=== PATIENT | female | born 1950 | race Caucasian/White ===

== ENCOUNTER 2018-05-24 18:59 | Observation (INO) | payer OTHER ==
[2018-05-24 19:55] VITALS: BMI 25.0
--- NOTE | 2018-05-24 20:33 | PDOC ---
Attending Attestation - HPI HPI: 05/24/18 22:02 The patient is a 67 year old female, with a significant past medical history of Parkinsons, epilepsy (last seizure 2-5 years ago), and schizophrenia, who presents to the emergency department with, an episode of pressure-like chest pain. She denies recent palpitations, diaphoresis, or shortness of breath. She denies recent fevers, chills, headache or dizziness. She denies recent nausea, vomit, diarrhea or constipation. She denies recent dysuria, frequency, urgency or hematuria. Allergies: NDKA Social history: [facility]-term rehab Primary Care Physician: Dr. Salvador - Physicial Exam PE: 05/24/18 23:26 Agree with resident exam. <Mi Menezes - Last Filed: 05/24/18 23:26> - Resident Resident Name: ToluDanilo - ED Attending Attestation I have performed the following: I have examined & evaluated the patient, The case was reviewed & discussed with the resident, I agree w/resident's findings & plan - Medical Decision Making 05/24/18 23:44 67-year-old female with chest pressure Troponin is within normal limits EKG showed a normal sinus rhythm with no significant ST segment changes CTA of the chest has been ordered to evaluate for pulmonary embolism due to active pressure and slightly low oxygenation of 92% on room air Plans for admission to medical service pending results <Krysten Beebe - Last Filed: 05/24/18 23:45> Attestations - Attestations 05/24/18 22:03 Documentation prepared by Mi Menezes, acting as medical stenographer for Krysten Beebe DO. <Mi Menezes - Last Filed: 05/24/18 23:26>
--- NOTE | 2018-05-24 21:11 | PDOC ---
History of Present Illness - General Chief Complaint: Chest Pain Stated Complaint: CHEST PAIN Time Seen by Provider: 05/24/18 20:32 History Source: Patient Exam Limitations: No Limitations - History of Present Illness Initial Comments: 05/24/18 21:25 67 yo F with a hx of seizures, HTN, schizophrenia, and parkinsons presents to the emergency department with chest pain since 3 pm today. Per the patient, she states it started while at rest. It was described as a sharp, 6/10, with radiation to the left arm, constant, without aggravating and relieving factors. Denies the following: fevers, chills, visual changes, headaches, abdominal pain , dysuria, hematuria, diarrhea, hematochezia, and leg pain/swelling. Denies recent travels, recent immobilization, recent surgery, and hx of PE/DVT. Patient denies her mother having a myocardial infarction and her father's health history is unknown. Allergies: NKDA Social: Denies tobacco, alcohol, and substance abuse. Past History - Past Medical History Allergies/Adverse Reactions: Allergies Allergy/AdvReac Type Severity Reaction Status Date / Time No Known Allergies Allergy Verified 05/24/18 21:34 Home Medications: Ambulatory Orders Acetaminophen 325 mg PO QID 05/24/18 Amantadine HCl [Amantadine] 100 mg PO BID 05/24/18 Aspirin 81 mg PO DAILY 05/24/18 Atorvastatin Ca [Lipitor] 20 mg PO HS 05/24/18 Carbidopa/Levodopa *Cr* 25/100 [Sinemet *Cr* 25/100 -] 1 tab PO TID 05/24/18 Docusate Sodium [Colace] 200 mg PO DAILY 05/24/18 Lamotrigine [Lamictal] 25 mg PO BID 05/24/18 Levetiracetam [Levetiracetam ER] 500 mg PO BID 05/24/18 Polyvinyl Alcohol [Artificial Tears] 1 drop OU BID 05/24/18 Quetiapine Fumarate [Seroquel -] 200 mg PO HS 05/24/18 Ramelteon [Rozerem] 8 mg PO HS 05/24/18 Sertraline HCl 25 mg PO HS 05/24/18 Zolpidem Tartrate 10 mg PO HS 05/24/18 - Suicide/Smoking/Psychosocial Hx Smoking History: Never smoked Have you smoked in the past 12 months: No Information on smoking cessation initiated: No Hx Alcohol Use: No Drug/Substance Use Hx: No Review of Systems - Review of Systems Able to Perform ROS?: Yes Is the patient limited [place] proficient: No Constitutional: Yes: Weakness. No: Chills, Diaphoresis, Fever HEENTM: No: Eye Pain, Recent change in vision, Ear Pain, Nose Pain, Throat Pain Respiratory: Yes: Shortness of Breath. No: Cough, SOB with Exertion, Hemoptysis Cardiac (ROS): Yes: Chest Pain. No: Lightheadedness, Palpitations, Syncope, Chest Tightness ABD/GI: Yes: Nausea. No: Constipated, Diarrhea, Poor Fluid Intake, Vomiting, Tarry Stools : No: Burning, Dysuria, Hematuria, Urgency Musculoskeletal: No: Back Pain, Joint Pain, Neck Pain Integumentary: No: Pallor, Rash Neurological: No: Headache, Numbness Psychiatric: Yes: Depression. No: Change in Appetite Endocrine: No: Unexplained Weight Loss Hematologic/Lymphatic: No: Anemia *Physical Exam - Vital Signs Last Vital Signs Temp Pulse Resp BP Pulse Ox 98.9 F 87 20 116/74 95 05/24/18 19:00 05/24/18 19:00 05/24/18 19:00 05/24/18 19:00 05/24/18 19:00 - Physical Exam General Appearance: Yes: Nourished, Appropriately Dressed. No: Apparent Distress HEENT: positive: EOMI, CONNIE, Normal Voice, Pharynx Normal, Hearing Grossly Normal. negative: Pale Conjunctivae, Scleral Icterus (R), Scleral Icterus (L), Muffled/Hoarse voice, Pharyngeal Erythema, Tonsillar Exudate, Tonsillar Erythema , Nasal Congestion, Excessive drooling Neck: positive: Trachea midline, Supple. negative: Tender, Lymphadenopathy (R) , Lymphadenopathy (L), Tender lateral, Tender midline Respiratory/Chest: positive: Lungs Clear, Normal Breath Sounds. negative: Chest Tender, Respiratory Distress, Accessory Muscle Use Cardiovascular: positive: Regular Rhythm, Regular Rate, S1, S2. negative: Systolic Murmur Gastrointestinal/Abdominal: positive: Normal Bowel Sounds, Flat, Soft. negative : Tender Musculoskeletal: positive: Normal Inspection. negative: CVA Tenderness, Vertebral Tenderness Extremity: positive: Normal Capillary Refill, Normal Inspection, Normal Range of Motion. negative: Tender Integumentary: positive: Normal Color, Dry, Warm Neurologic: positive: Fully Oriented, Alert, Normal Mood/Affect, Motor Strength 5/5 Moderate Sedation - Procedure Monitoring Vital Signs: Procedure Monitoring Vital Signs Temperature 98.9 F 05/24/18 19:00 Pulse Rate 87 05/24/18 19:00 Respiratory Rate 20 05/24/18 19:00 Blood Pressure 116/74 05/24/18 19:00 O2 Sat by Pulse Oximetry (%) 95 05/24/18 19:00 Heart Score/ECG Review - History History: Moderately suspicious - Electrocardiogram EKG: Normal - Age Age: >/= 65 - Risk Factors Risk Factors Heart Score: Yes Hx Hypertension, Yes Hx Obesity Based on the list above the patient has:: 1-2 risk factors - Troponin Troponin: </= normal limit - Score Heart Score - Total: 4 - ECG Intrepretation Comment:: 05/24/18 22:48 ventricular rate is 75 bpm, UT is 174 ms, QRS is 84 ms, QTc is 446 ms. Normal sinus rhythm. No ST elevations or depressions. ED Treatment Course - LABORATORY CBC & Chemistry Diagram: 05/25/18 05:20 05/25/18 05:20 Medical Decision Making - Medical Decision Making 67 yo F with a hx of seizures, HTN, schizophrenia, and parkinsons presents to the emergency department with chest pain since 3 pm today. Initial vitals; Initial Vital Signs Temp Pulse Resp BP Pulse Ox 98.9 F 87 20 116/74 95 05/24/18 19:00 05/24/18 19:00 05/24/18 19:00 05/24/18 19:00 05/24/18 19:00 Work up: ddx: ACS vs pericarditis vs pna vs pleuritis vs URI vs costochondritis vs pericardial effusion 05/24/18 22:47 Patient to be admitted to [facility] for further cardiac work up. At the time of sign out to Dr. Telles, patient had pending labs and EKG. 05/24/18 22:48 Patient signed out to Dr. Telles *DC/Admit/Observation/Transfer Diagnosis at time of Disposition: Chest pain Qualifiers: Chest pain type: unspecified Qualified Code(s): R07.9 - Chest pain, unspecified - Discharge Dispostion Condition at time of disposition: Guarded - Referrals - Patient Instructions - Post Discharge Activity
[2018-05-24] MEDS ORDERED: SODIUM CHLORIDE 500 ML IV STA (22:47)
[2018-05-24 23:02] LABS: BASO % 0.5 % (0-2.0); HEMATOCRIT 37.1 % (32.4-45.2); HEMOGLOBIN 12.5 GM/dL (10.7-15.3); LYMPH % 39.8 % (8-40); MCH 31.4 pg (25.7-33.7); MCHC 33.7 g/dl (32.0-36.0); MEAN CELL VOLUME 93.2 fl (80-96); MEAN PLT VOLUME 8.8 fl (7.5-11.1); MONO % 9.1 % (3.8-10.2); NEUT % 48.6 % (42.8-82.8); PLATELET COUNT 224 K/MM3 (134-434); RBC 3.98 M/mm3 (3.60-5.2); RDW 13.4 % (11.6-15.6); WHITE BLOOD COUNT 9.8 K/mm3 (4.0-10.0)
[2018-05-24] MEDS ORDERED: ZOLPIDEM TARTRATE 5 MG TABLET PO ONE (23:30)
[2018-05-24 23:34] LABS: ALBUMIN 3.1 g/dl (3.4-5.0); ALK PHOS 143 U/L (45-117); ANION GAP 8 MMOL/L (8-16); BILIRUBIN,TOTAL 0.2 mg/dL (0.2-1); BLOOD UREA NITROGEN 7 mg/dL (7-18); CALCIUM 9.2 mg/dL (8.5-10.1); CHLORIDE 107 mmol/L (98-107); CO2 28 mmol/L (21-32); CREATININE 0.7 mg/dL (0.55-1.3); GLUCOSE,RANDOM 79 mg/dL (74-106); SGOT/AST 13 U/L (15-37); SGPT/ALT 7 U/L (13-61); SODIUM 143 mmol/L (136-145); TOT PROT 6.4 g/dl (6.4-8.2)
--- NOTE | 2018-05-24 23:35 | PDOC ---
*Physical Exam - Vital Signs Last Vital Signs Temp Pulse Resp BP Pulse Ox 98.9 F 87 20 116/74 95 05/24/18 19:00 05/24/18 19:00 05/24/18 19:00 05/24/18 19:00 05/24/18 19:00 ED Treatment Course - LABORATORY CBC & Chemistry Diagram: 05/24/18 22:41 05/24/18 22:41 - ADDITIONAL ORDERS Additional order review: 05/24/18 22:41 RBC 3.98 MCV 93.2 MCHC 33.7 RDW 13.4 MPV 8.8 Neutrophils % 48.6 Lymphocytes % 39.8 Monocytes % 9.1 Eosinophils % 2.0 Basophils % 0.5 - RADIOLOGY Radiology Studies Ordered: Category Date Time Status CHEST CTA [CT] Stat CT Scan 05/24/18 23:32 Ordered Medical Decision Making - Medical Decision Making 05/24/18 22:34 The patient was signed out to me by Dr. Motley. The patient is a 67F who presents with CP concerning for ACS vs PE. Pt remains hypoxic in ED. Will order CTA to r/o PE. Pt resting comfortably. 05/25/18 00:07 Pt states she takes 10mg of ambien. 5 more ordered. 05/25/18 00:38 Pt refused peripheral IV insertion for CTA study. I have informed her of the risks of not getting a CTA study and she agrees to not have it. Pt is normoxic, not tachycardic, and not tachypneic. Pt states her CP symptoms have resolved. Microblogged for admission. 05/25/18 00:[address] Shaffer for admission. *DC/Admit/Observation/Transfer Diagnosis at time of Disposition: Chest pain Qualifiers: Chest pain type: unspecified Qualified Code(s): R07.9 - Chest pain, unspecified - Discharge Dispostion Condition at time of disposition: Guarded Decision to Admit order: Yes - Referrals Referrals: Emiliano Salvador MD [Primary Care Provider] - - Patient Instructions - Post Discharge Activity
[2018-05-24 23:51] LABS: URINE APPEARANCE CLOUDY; URINE BILIRUBIN NEGATIVE (<2.0 mg/dL); URINE COLOR YELLOW; URINE GLUCOSE (UA) NEGATIVE (NEGATIVE); URINE KETONE TRACE (NEGATIVE); URINE LEUK ESTERASE 3+ (NEGATIVE); URINE NITRITE NEGATIVE (NEGATIVE); URINE PROTEIN NEGATIVE (NEGATIVE); URINE UROBILINOGEN NEGATIVE mg/dL (0.2-1.0)
[2018-05-25] LABS: EPI CELLS FEW /HPF (FEW); URINE HYALINE CAST 5 /lpf; YEAST RARE
[2018-05-25] MEDS ORDERED: ZOLPIDEM TARTRATE 5 MG TABLET ONE ×2 (00:04→00:47)
[2018-05-25] MEDS ORDERED: ZOLPIDEM TARTRATE 5 MG TABLET PO ONE (00:07)
[2018-05-25] MEDS ORDERED: CEFTRIAXONE 1,000 MG in DEXTROSE 5%-WATER - 50 ML IVPB ONE (00:55)
[2018-05-25] MEDS ORDERED: CEFTRIAXONE 1 GM/50 ML BAG ONE ×2 (01:14→09:15)
--- NOTE | 2018-05-25 01:27 | PN ---
Teaching Attending Note Name of Resident: Yenifer Shaffer ATTENDING PHYSICIAN STATEMENT I saw and evaluated the patient. I reviewed the resident's note and discussed the case with the resident. I agree with the resident's findings and plan as documented. SUBJECTIVE: Patient is a 67 year old woman from [facility] with PMH of seizure disorder, HTN , schizophrenia, and parkinsons who presents to the ER with chest pain since 3 pm today. Per the patient, she states it started while at rest. It was described as a sharp, 6/10, with radiation to the left arm, constant, without aggravating and relieving factors. Has dysuria. Denies the following: fevers, chills, visual changes, headaches, abdominal pain, hematuria, diarrhea, hematochezia, and leg pain/swelling. Denies recent travels, recent immobilization, recent surgery, and hx of PE/DVT. Patient denies her mother having a myocardial infarction and her father's health history is unknown. She was recently at [facility] for ?seizures from where she was sent to [place] to get short stay rehab for gait abnormality. 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 OBJECTIVE: Alert and tremulous Vital Signs Period Temp Pulse Resp BP Sys/[place] Pulse Ox Last 24 Hr 98.9 F 87 20 116/74 95 HEENT: No Jaundice, eye redness or discharge, PERRLA, EOMI. Normocephalic, atraumatic. External ears are normal and hearing is grossly intact. No nasal discharge. Neck: Supple, nontender. No palpable adenopathy or thyromegaly. No JVD Chest: Good effort. Clear to auscultation and percussion. Heart: Regular. No S3, rub or murmur Abdomen: Not distended, soft, nontender and no HSM. No rebound or guarding. Normoactive bowel sounds. Ext: Peripheral pulses intact. No leg edema. Skin: Warm and dry. No petechiae, rash or ecchymosis. Neuro: Alert. Oriented x3. Tremulous. CN 2-12 grossly intact. Sensation grossly intact in all four extremities and DTR are symmetric. Home Medications Medication Instructions Recorded Acetaminophen 325 mg PO QID 05/24/18 Amantadine HCl [Amantadine] 100 mg PO BID 05/24/18 Aspirin 81 mg PO DAILY 05/24/18 Atorvastatin Ca [Lipitor] 20 mg PO HS 05/24/18 Carbidopa/Levodopa *Cr* 25/100 1 tab PO TID 05/24/18 [Sinemet *Cr* 25/100 -] Docusate Sodium [Colace] 200 mg PO DAILY 05/24/18 Lamotrigine [Lamictal] 25 mg PO BID 05/24/18 Levetiracetam [Levetiracetam ER] 500 mg PO BID 05/24/18 Polyvinyl Alcohol [Artificial 1 drop OU BID 05/24/18 Tears] Quetiapine Fumarate [Seroquel -] 200 mg PO HS 05/24/18 Ramelteon [Rozerem] 8 mg PO HS 05/24/18 Sertraline HCl 25 mg PO HS 05/24/18 Zolpidem Tartrate 10 mg PO HS 05/24/18 Abnormal Lab Results 05/24/18 05/24/18 22:41 23:01 AST 13 L ALT 7 L Alkaline Phosphatase 143 H Albumin 3.1 L Urine Ketones Trace H Urine Blood 1+ H Ur Leukocyte Esterase 3+ H ASSESSMENT AND PLAN: 1. Chest pain - No significant ST-T wave changes on EKG and no acute abnormality on CXR. Initial troponin is negative. Chest pain is atypical. Will admit to telemetry to rule out ACS. Has features of UTI - though she is a [place] resident, she is afebrile, not toxic looking and does not have leukocytosis - so okay to treat her UTI with just Rocephin pending urine culture. 2. Hypoalbuminemia - Possibly due to combined effects of malnutrition and inflammation associated with comorbid chronic conditions. Will ensure adequate dietary protein intake and also consult director of reservations. 3. DVT prophylaxis - Lovenox 40 mg SQ q 24 hours. 4. Advance directives - Full code
--- NOTE | 2018-05-25 01:58 | HP ---
CHIEF COMPLAINT: chest pain PCP: none HISTORY OF PRESENT ILLNESS: 67 y/o female with PMH of parkinson's, epilespy, schizophrenia, HLD who presents from [facility] (short term stay for physical therapy), who presents with chest pain that started around 3pm yesterday afternoon- she states that she was laying in bed watching TV when the chest pain suddenly came on- she rates it a 7/10 and describes it as a squeezing like pain that radiated down the left arm. Patient states that she had an episode like this in the past once before, but has never seen a live truck operator nor has she had any cardiac workup. She also states that she has been feeling weak/dizzy for the past few days but denies any nausea/vomiting/fevers ir chills. she was recently hospitalized at [facility] for 5 days due to her seizures then was sent to [facility] for physical therapy. patient also endorses having burning on urination since she got the detention 2 weeks ago ER course was notable for: (1trop negative X1; EKG NSR- no st/t wave changes (2)u/a: 3+ leuk esterase; 346 WBC (3) Recent Travel: denies PAST MEDICAL HISTORY: see above PAST SURGICAL HISTORY: denies Social History: Smoking:former smoker; quit 30 years ago Alcohol:occasional drinker; enjoys red [employer] Drugs:former heroin user used everyday for 20 years- hasn't used in 25 years Family History: mother had cardiomegaly Allergies No Known Allergies Allergy (Verified 05/24/18 21:34) HOME MEDICATIONS: Home Medications Medication Instructions Recorded Acetaminophen 325 mg PO QID 05/24/18 Amantadine HCl [Amantadine] 100 mg PO BID 05/24/18 Aspirin 81 mg PO DAILY 05/24/18 Atorvastatin Ca [Lipitor] 20 mg PO HS 05/24/18 Carbidopa/Levodopa *Cr* 25/100 1 tab PO TID 05/24/18 [Sinemet *Cr* 25/ -] Docusate Sodium [Colace] 200 mg PO DAILY 05/24/18 Lamotrigine [Lamictal] 25 mg PO BID 05/24/18 Levetiracetam [Levetiracetam ER] 500 mg PO BID 05/24/18 Polyvinyl Alcohol [Artificial 1 drop OU BID 05/24/18 Tears] Quetiapine Fumarate [Seroquel -] 200 mg PO HS 05/24/18 Ramelteon [Rozerem] 8 mg PO HS 05/24/18 Sertraline HCl 25 mg PO HS 05/24/18 Zolpidem Tartrate 10 mg PO HS 05/24/18 REVIEW OF SYSTEMS CONSTITUTIONAL: Absent: fever, chills, diaphoresis, generalized weakness, malaise, loss of appetite, weight change HEENT: Absent: rhinorrhea, nasal congestion, throat pain, throat swelling, difficulty swallowing, mouth swelling, ear pain, eye pain, visual changes CARDIOVASCULAR: Present: chest pain Absent: syncope, palpitations, irregular heart rate, lightheadedness, peripheral edema RESPIRATORY: Absent: cough, shortness of breath, dyspnea with exertion, orthopnea, wheezing, stridor, hemoptysis GASTROINTESTINAL: Absent: abdominal pain, abdominal distension, nausea, vomiting, diarrhea, constipation, melena, hematochezia GENITOURINARY: Absent: dysuria, frequency, urgency, hesitancy, hematuria, flank pain, genital pain MUSCULOSKELETAL: Absent: myalgia, arthralgia, joint swelling, back pain, neck pain SKIN: Absent: rash, itching, pallor HEMATOLOGIC/IMMUNOLOGIC: Absent: easy bleeding, easy bruising, lymphadenopathy, frequent infections ENDOCRINE: Absent: unexplained weight gain, unexplained weight loss, heat intolerance, cold intolerance NEUROLOGIC: Absent: headache, focal weakness or paresthesias, dizziness, unsteady gait, seizure, mental status changes, bladder or bowel incontinence PSYCHIATRIC: Absent: anxiety, depression, suicidal or homicidal ideation, hallucinations. PHYSICAL EXAMINATION Vital Signs - 24 hr 05/24/18 19:00 Temperature 98.9 F Pulse Rate 87 Respiratory 20 Rate Blood Pressure 116/74 O2 Sat by Pulse 95 Oximetry (%) GENERAL: Awake, alert, anxious, tremulous EYES:EOMI; PEERLA; no scleral icterus. NECK: no JVD, no lypmhadenopathy LUNGS: CTA B/L; no rales, rhonchi or wheezing HEART: Regular rate and rhythm, normal S1 and S2 without murmur, rub or gallop. ABDOMEN: Soft, nontender, not distended, normoactive bowel sounds, no guarding, no rebound, no masses. No hepatomegaly or splenomegaly. MUSCULOSKELETAL: Normal range of motion at all joints. No bony deformities or tenderness. No CVA tenderness. EXTREMITIES: warm; well-perfused; no clubbing/cyanosis or edema NEUROLOGICAL: Cranial nerves II-XII intact. Normal speech. Normal gait. PSYCHIATRIC: Cooperative. Good eye contact. Appropriate mood and affect. SKIN: Warm, dry, normal turgor, no rashes or lesions noted, normal capillary refill. Laboratory Results - last 24 hr 05/24/18 05/24/18 05/24/18 22:41 22:41 23:01 WBC 9.8 RBC 3.98 Hgb 12.5 Hct 37.1 MCV 93.2 MCH 31.4 MCHC 33.7 RDW 13.4 Plt Count 224 MPV 8.8 Absolute Neuts (auto) 4.7 Neutrophils % 48.6 Lymphocytes % 39.8 Monocytes % 9.1 Eosinophils % 2.0 Basophils % 0.5 Nucleated RBC % 0 Sodium 143 Potassium 4.0 Chloride 107 Carbon Dioxide 28 Anion Gap 8 BUN 7 Creatinine 0.7 Creat Clearance w eGFR > 60 Random Glucose 79 Calcium 9.2 Total Bilirubin 0.2 AST 13 L ALT 7 L Alkaline Phosphatase 143 H Creatine Kinase 30 Troponin I 0.02 Total Protein 6.4 Albumin 3.1 L Urine Color Yellow Urine Appearance Cloudy Urine pH 6.0 Ur Specific [place] 1.014 Urine Protein Negative Urine Glucose (UA) Negative Urine Ketones Trace H Urine Blood 1+ H Urine Nitrite Negative Urine Bilirubin Negative Urine Urobilinogen Negative Ur Leukocyte Esterase 3+ H Urine WBC (Auto) 346 Urine RBC (Auto) 6 Ur Epithelial Cells Few Hyaline Casts 5 Urine Yeast Rare ASSESSMENT/PLAN: 67 y/o female with PMH of parkinson's, epilespy, schizophrenia, HLD who presents with sudden onset chest pain that started at rest yesterday afternoon #rule out ACS -trend troponins q6H -c/w ASA and statin -lipid profile pending -TSH pending -echo ordered -cardiology consulted #UTI -c/w 1gram ceftriaxone -f/u urine cx #Epilespy -c/w home epilepsy medication regimen #Schizophrenia - c/w home medication regimen F/E/N not on fluids monitor electrolytes sodium controlled diet DVT PPX: lovenox Problem List - Problem (1) UTI (urinary tract infection) Code(s): N39.0 - URINARY TRACT INFECTION, SITE NOT SPECIFIED (2) Parkinsons Code(s): G20 - PARKINSON'S DISEASE (3) Epilepsy Code(s): G40.909 - EPILEPSY, UNSP, NOT INTRACTABLE, WITHOUT STATUS EPILEPTICUS (4) Chest pain Code(s): R07.9 - CHEST PAIN, UNSPECIFIED Qualifiers: Chest pain type: unspecified Qualified Code(s): R07.9 - Chest pain, unspecified Visit type - Emergency Visit Emergency Visit: Yes ED Registration Date: 05/25/18 Care time: The patient presented to the Emergency Department on the above date and was hospitalized for further evaluation of their emergent condition. - New Patient This patient is new to me today: Yes Date on this admission: 05/25/18 - Critical Care Critical Care patient: No
[2018-05-25] MEDS ORDERED: ZOLPIDEM TARTRATE 5 MG TABLET PO PRN (04:52)
[2018-05-25 05:57] LABS: BASO % 0.5 % (0-2.0); EOS % 1.5 % (0-4.5); HEMATOCRIT 36.3 % (32.4-45.2); HEMOGLOBIN 12.4 GM/dL (10.7-15.3); LYMPH % 33.5 % (8-40); MCH 31.8 pg (25.7-33.7); MCHC 34.3 g/dl (32.0-36.0); MEAN CELL VOLUME 92.8 fl (80-96); MEAN PLT VOLUME 8.6 fl (7.5-11.1); MONO % 9.4 % (3.8-10.2); NEUT % 55.1 % (42.8-82.8); PLATELET COUNT 218 K/MM3 (134-434); RBC 3.91 M/mm3 (3.60-5.2); RDW 13.3 % (11.6-15.6); WHITE BLOOD COUNT 8.7 K/mm3 (4.0-10.0)
[2018-05-25] MEDS ORDERED: CARBIDOPA/LEVODOPA 25/100 TABLET (FP) ONE (06:08)
[2018-05-25 06:26] LABS: ALK PHOS 141 U/L (45-117); ANION GAP 7 MMOL/L (8-16); BILIRUBIN,TOTAL 0.2 mg/dL (0.2-1); BLOOD UREA NITROGEN 9 mg/dL (7-18); CHLORIDE 107 mmol/L (98-107); CHOLESTEROL 174 mg/dL (50-200); CO2 28 mmol/L (21-32); CREATININE 0.8 mg/dL (0.55-1.3); GLUCOSE,RANDOM 81 mg/dL (74-106); HDL CHOLESTEROL 67 mg/dL (40-60); MAGNESIUM 2.3 mg/dL (1.8-2.4); PHOSPHOROUS 4.1 mg/dL (2.5-4.9); POTASSIUM 4.1 mmol/L (3.5-5.1); SGOT/AST 12 U/L (15-37); SGPT/ALT 12 U/L (13-61); SODIUM 142 mmol/L (136-145); TOT PROT 6.3 g/dl (6.4-8.2); TRIGLYCERIDES 141 mg/dL (0-150)
--- NOTE | 2018-05-25 09:52 | PN ---
Progress Note (short form) - Note Progress Note: has chest pain this AM none so far Vital Signs - 24 hr 05/24/18 05/25/18 05/25/18 19:00 06:55 06:59 Temperature 98.9 F 98.3 F Pulse Rate 87 Pulse Rate [ 92 H Apical] Respiratory 20 20 Rate Blood Pressure 116/74 Blood Pressure 124/65 [Left] O2 Sat by Pulse 95 97 94 L Oximetry (%) 05/25/18 07:42 Temperature 97.7 F Pulse Rate 103 H Pulse Rate [ 102 H Apical] Respiratory 18 Rate Blood Pressure Blood Pressure 115/69 [Left] O2 Sat by Pulse 97 Oximetry (%) Current Medications Generic Name Dose Route Start Last Admin Trade Name Freq PRN Reason Stop Dose Admin Amantadine HCl 100 mg 05/25/18 10:00 Symmetrel - PO BID [facility] Aspirin 81 mg 05/25/18 10:00 Asa - PO DAILY [facility] Atorvastatin Calcium 20 mg 05/25/18 22:00 Lipitor - PO HS [facility] Carbidopa/Levodopa 1 combo 05/25/18 06:00 05/25/18 06:08 Sinemet *Cr* 25/100 - PO 1 combo TID [facility] Administration Enoxaparin Sodium 40 mg 05/25/18 10:00 Lovenox - SQ DAILY [facility] Ceftriaxone Sodium 1 gm/ 50 mls @ 100 mls/hr 05/25/18 10:00 Dextrose IVPB DAILY [facility] Protocol Lamotrigine 25 mg 05/25/18 10:00 Lamictal - PO BID [facility] Levetiracetam 500 mg 05/25/18 10:00 Keppra Xr - PO BID [facility] Quetiapine Fumarate 200 mg 05/25/18 22:00 Seroquel - PO HS [facility] Ramelteon 8 mg 05/25/18 22:00 Rozerem PO HS [facility] Sertraline HCl 25 mg 05/25/18 22:00 Zoloft - PO HS [facility] Zolpidem Tartrate 5 mg 05/25/18 04:52 Ambien - PO HS PRN INSOMNIA Laboratory Results - last 24 hr 05/24/18 05/24/18 05/24/18 22:41 22:41 23:01 WBC 9.8 RBC 3.98 Hgb 12.5 Hct 37.1 MCV 93.2 MCH 31.4 MCHC 33.7 RDW 13.4 Plt Count 224 MPV 8.8 Absolute Neuts (auto) 4.7 Neutrophils % 48.6 Lymphocytes % 39.8 Monocytes % 9.1 Eosinophils % 2.0 Basophils % 0.5 Nucleated RBC % 0 Sodium 143 Potassium 4.0 Chloride 107 Carbon Dioxide 28 Anion Gap 8 BUN 7 Creatinine 0.7 Creat Clearance w eGFR > 60 Random Glucose 79 Calcium 9.2 Phosphorus Magnesium Total Bilirubin 0.2 AST 13 L ALT 7 L Alkaline Phosphatase 143 H Creatine Kinase 30 Troponin I 0.02 Total Protein 6.4 Albumin 3.1 L Triglycerides Cholesterol Total LDL Cholesterol HDL Cholesterol Urine Color Yellow Urine Appearance Cloudy Urine pH 6.0 Ur Specific [place] 1.014 Urine Protein Negative Urine Glucose (UA) Negative Urine Ketones Trace H Urine Blood 1+ H Urine Nitrite Negative Urine Bilirubin Negative Urine Urobilinogen Negative Ur Leukocyte Esterase 3+ H Urine WBC (Auto) 346 Urine RBC (Auto) 6 Ur Epithelial Cells Few Hyaline Casts 5 Urine Yeast Rare 05/25/18 05/25/18 05/25/18 05:20 05:20 05:20 WBC 8.7 RBC 3.91 Hgb 12.4 Hct 36.3 MCV 92.8 MCH 31.8 MCHC 34.3 RDW 13.3 Plt Count 218 MPV 8.6 Absolute Neuts (auto) 4.8 Neutrophils % 55.1 Lymphocytes % 33.5 Monocytes % 9.4 Eosinophils % 1.5 Basophils % 0.5 Nucleated RBC % 0 Sodium 142 Potassium 4.1 Chloride 107 Carbon Dioxide 28 Anion Gap 7 L BUN 9 Creatinine 0.8 Creat Clearance w eGFR > 60 Random Glucose 81 Calcium 9.0 Phosphorus 4.1 Magnesium 2.3 Total Bilirubin 0.2 AST 12 L ALT 12 L Alkaline Phosphatase 141 H Creatine Kinase Troponin I Total Protein 6.3 L Albumin 3.0 L Triglycerides 141 Cholesterol 174 Total LDL Cholesterol 80 HDL Cholesterol 67 H Urine Color Urine Appearance Urine pH Ur Specific [place] Urine Protein Urine Glucose (UA) Urine Ketones Urine Blood Urine Nitrite Urine Bilirubin Urine Urobilinogen Ur Leukocyte Esterase Urine WBC (Auto) Urine RBC (Auto) Ur Epithelial Cells Hyaline Casts Urine Yeast 05/25/18 05:20 WBC RBC Hgb Hct MCV MCH MCHC RDW Plt Count MPV Absolute Neuts (auto) Neutrophils % Lymphocytes % Monocytes % Eosinophils % Basophils % Nucleated RBC % Sodium Potassium Chloride Carbon Dioxide Anion Gap BUN Creatinine Creat Clearance w eGFR Random Glucose Calcium Phosphorus Magnesium Total Bilirubin AST ALT Alkaline Phosphatase Creatine Kinase Troponin I < 0.02 Total Protein Albumin Triglycerides Cholesterol Total LDL Cholesterol HDL Cholesterol Urine Color Urine Appearance Urine pH Ur Specific [place] Urine Protein Urine Glucose (UA) Urine Ketones Urine Blood Urine Nitrite Urine Bilirubin Urine Urobilinogen Ur Leukocyte Esterase Urine WBC (Auto) Urine RBC (Auto) Ur Epithelial Cells Hyaline Casts Urine Yeast S1 S2 RRR Lungs clear Abd- soft, NT no edema PLAN Echo ordered check troponins trend Cardiology eval noted For stress test Problem List - Problems (1) Anxiety Code(s): F41.9 - ANXIETY DISORDER, UNSPECIFIED (2) Aortic regurgitation Code(s): I35.1 - NONRHEUMATIC AORTIC (VALVE) INSUFFICIENCY (3) Chest pain Code(s): R07.9 - CHEST PAIN, UNSPECIFIED Qualifiers: Chest pain type: unspecified Qualified Code(s): R07.9 - Chest pain, unspecified (4) Epilepsy Code(s): G40.909 - EPILEPSY, UNSP, NOT INTRACTABLE, WITHOUT STATUS EPILEPTICUS (5) Parkinsons Code(s): G20 - PARKINSON'S DISEASE (6) Schizophrenia Code(s): F20.9 - SCHIZOPHRENIA, UNSPECIFIED (7) UTI (urinary tract infection) Code(s): N39.0 - URINARY TRACT INFECTION, SITE NOT SPECIFIED
[2018-05-25] MEDS: levETIRAcetam XR 500 MG TAB PO SCH ×2 (09:57→22:39)
[2018-05-25] MEDS: ASPIRIN 81 MG CHEWABLE TABLETS PO SCH (09:57)
[2018-05-25] MEDS: AMANTADINE HCL 100 MG TABLET PO SCH ×2 (09:58→22:42)
[2018-05-25] MEDS: ENOXAPARIN NA (PORCINE) 40 MG/0.4 ML DISP.SYRIN SQ SCH (09:58)
[2018-05-25] MEDS: lamoTRIgine 25 MG TABLET PO SCH ×2 (09:58→22:40)
--- NOTE | 2018-05-25 10:24 | CON.CARD ---
Consult Consult Specialty:: Cardiology - History of Present Illness History of Present Illness: The patient is a 67 year old female, with a significant past medical history of Parkinsons, epilepsy (last seizure 2-5 years ago), and schizophrenia, who presents to the emergency department with, an episode of pressure-like chest pain. She denies recent palpitations, diaphoresis, or shortness of breath. She denies recent fevers, chills, headache or dizziness. She denies recent nausea, vomit, diarrhea or constipation. She denies recent dysuria, frequency, urgency or hematuria. Allergies: NDKA Social history: [facility] Primary Care Physician: Dr. Salvador - History Source History Provided By: Patient, Medical Record - Alcohol/Substance Use Hx Alcohol Use: No - Smoking History Smoking history: Never smoked Have you smoked in the past 12 months: No Home Medications - Allergies Allergies/Adverse Reactions: Allergies Allergy/AdvReac Type Severity Reaction Status Date / Time No Known Allergies Allergy Verified 05/24/18 21:34 - Home Medications Home Medications: Ambulatory Orders Acetaminophen 325 mg PO QID 05/24/18 Amantadine HCl [Amantadine] 100 mg PO BID 05/24/18 Aspirin 81 mg PO DAILY 05/24/18 Atorvastatin Ca [Lipitor] 20 mg PO HS 05/24/18 Carbidopa/Levodopa *Cr* 25/100 [Sinemet *Cr* 25/100 -] 1 tab PO TID 05/24/18 Docusate Sodium [Colace] 200 mg PO DAILY 05/24/18 Lamotrigine [Lamictal] 25 mg PO BID 05/24/18 Levetiracetam [Levetiracetam ER] 500 mg PO BID 05/24/18 Polyvinyl Alcohol [Artificial Tears] 1 drop OU BID 05/24/18 Quetiapine Fumarate [Seroquel -] 200 mg PO HS 05/24/18 Ramelteon [Rozerem] 8 mg PO HS 05/24/18 Sertraline HCl 25 mg PO HS 05/24/18 Zolpidem Tartrate 10 mg PO HS 05/24/18 Review of Systems - Review of Systems Constitutional: reports: No Symptoms Eyes: reports: No Symptoms HENT: reports: No Symptoms Neck: reports: No Symptoms Cardiovascular: reports: No Symptoms, Chest Pain Respiratory: reports: No Symptoms Gastrointestinal: reports: No Symptoms Genitourinary: reports: No Symptoms Breasts: reports: No Symptoms Reported Musculoskeletal: reports: No Symptoms Integumentary: reports: No Symptoms Neurological: reports: No Symptoms Endocrine: reports: No Symptoms Hematology/Lymphatic: reports: No Symptoms Psychiatric: reports: No Symptoms Vital Signs: Vital Signs Temperature 97.7 F 05/25/18 07:42 Pulse Rate 102 H 05/25/18 07:42 Respiratory Rate 18 05/25/18 07:42 Blood Pressure 115/69 05/25/18 07:42 O2 Sat by Pulse Oximetry (%) 97 05/25/18 07:42 Constitutional: Yes: Well Nourished, No Distress, Calm Eyes: Yes: WNL, Conjunctiva Clear, EOM Intact HENT: Yes: WNL, Atraumatic, Normocephalic Neck: Yes: WNL, Supple, Trachea Midline Respiratory: Yes: WNL, Regular, CTA Bilaterally Gastrointestinal: Yes: WNL, Normal Bowel Sounds Renal/: Yes: WNL Cardiovascular: Yes: WNL, Regular Rate and Rhythm Musculoskeletal: Yes: WNL Extremities: Yes: WNL Integumentary: Yes: WNL Neurological: Yes: WNL, Alert, Oriented ...Motor Strength: WNL Psychiatric: Yes: WNL, Alert, Oriented - Other Data Labs, Other Data: CBC, BMP 05/25/18 05:20 05/25/18 05:20 Troponin, BNP 05/24/18 05/25/18 22:41 05:20 Troponin I 0.02 < 0.02 Troponin, BNP 05/24/18 05/25/18 22:41 05:20 Troponin I 0.02 < 0.02 Imaging - Results Chest X-ray: Image Reviewed (no i/e) EKG: Image Reviewed (sr wnl) Problem List - Problems (1) Chest pain Code(s): R07.9 - CHEST PAIN, UNSPECIFIED Qualifiers: Chest pain type: unspecified Qualified Code(s): R07.9 - Chest pain, unspecified (2) Epilepsy Code(s): G40.909 - EPILEPSY, UNSP, NOT INTRACTABLE, WITHOUT STATUS EPILEPTICUS (3) Parkinsons Code(s): G20 - PARKINSON'S DISEASE (4) UTI (urinary tract infection) Code(s): N39.0 - URINARY TRACT INFECTION, SITE NOT SPECIFIED Assessment/Plan 67 year old female, with a significant past medical history of Parkinsons, epilepsy (last seizure 2-5 years ago), and schizophrenia, who presents to the emergency department with, an episode of pressure-like chest pain. ekg nl tnis neg Plan telemetry echo cont med rx stress test when stable
[2018-05-25] MEDS: CEFTRIAXONE 1 GM in DEXTROSE 5%-WATER - 50 ML IVPB SCH (10:33)
--- NOTE | 2018-05-25 11:38 | EKG ---
Test Reason : Blood Pressure : / mmHG Vent. Rate : 075 BPM Atrial Rate : 075 BPM P-R Int : 174 ms QRS Dur : 084 ms QT Int : 400 ms P-R-T Axes : 054 -08 026 degrees QTc Int : 446 ms POOR DATA QUALITY, INTERPRETATION MAY BE ADVERSELY AFFECTED NORMAL SINUS RHYTHM NORMAL ECG NO PREVIOUS ECGS AVAILABLE Confirmed by PETEY FLORES MD ([id number]) on 05/25/2018 11:37:50 AM Referred By: Confirmed By:PETEY FLORES MD
--- NOTE | 2018-05-25 13:20 | ECHO ---
Name: CAM MUKHERJEE Exam:Adult Echocardiogram Study Date: 05/25/2018 08:59 AM Age: 67 yrs Reason For Study: Rule Out ACS Height: 67 in Weight: 160 lb BSA: 1.8 m2 MMode/2D Measurements & Calculations IVSd: 1.1 cm Ao root diam: 2.0 cm LVIDd: 3.5 cm ACS: 2.0 cm LVIDs: 3.1 cm LVPWd: 1.2 cm EDV(Teich): 49.3 ml ESV(Teich): 37.2 ml Doppler Measurements & Calculations TR max eliseo: 192.4 cm/sec Med Peak E' Eliseo: 5.3 cm/sec TR max P.0 mmHg Lat Peak E' Eliseo: 7.8 cm/sec Procedure A two-dimensional transthoracic echocardiogram with color flow and Doppler was performed. The study w as technically difficult with many images being suboptimal in quality. Left Ventricle The left ventricular size, thickness and function are normal. The left ventricular ejection fraction is normal. E/A reversal consistent with but not diagnostic of poor LV compliance. The left ventricular w all motion is normal. Right Ventricle The right ventricle is normal in size and function. Atria Normal left and right atrial size and function. Mitral Valve There is mild mitral valve thickening. There is no mitral valve stenosis. There is trace to mild mitr al regurgitation. Tricuspid Valve There is mild tricuspid valve thickening. There is no tricuspid stenosis. There is moderate to severe tricuspid regurgitation. Right ventricular systolic pressure is normal. Aortic Valve The aortic valve is not well visualized. No hemodynamically significant valvular aortic stenosis. Mod erate aortic regurgitation. Pulmonic Valve The pulmonic valve is not well visualized. Great Vessels The aortic root is normal size. Pericardium/Pleura There is no pericardial effusion. Interpretation Summary The left ventricular size, thickness and function are normal E/A reversal consistent with but not diagnostic of poor LV compliance There is moderate to severe tricuspid regurgitation. Right ventricular systolic pressure is normal. The study was technically difficult with many images being suboptimal in quality. The left ventricular wall motion is normal. The left ventricular ejection fraction is normal. There is trace to mild mitral regurgitation. Moderate aortic regurgitation. MD Johnson Florian 05/25/2018 01:20 PM
[2018-05-25] MEDS ORDERED: PT OWN MED DRAWER 7, Y5N ONE (21:36)
[2018-05-25] MEDS ORDERED: ATORVASTATIN CA 20 MG TABLET (FP) PO SCH (22:00)
[2018-05-25] MEDS ORDERED: RAMELTEON 8 MG TABLET PO SCH (22:00)
[2018-05-25] MEDS ORDERED: SERTRALINE HCL 25 MG TABLET (FP) PO SCH (22:00)
[2018-05-25] MEDS ORDERED: QUEtiapine FUMARATE 200 MG TABLET PO SCH (22:00)
[2018-05-26] MEDS ORDERED: DEXTROSE 5%-WATER - 50 ML IVPB ONE (08:31)
[2018-05-26] MEDS ORDERED: cefTRIAXone SODIUM 1 GM VIAL ONE (08:31)
--- NOTE | 2018-05-26 09:21 | PN ---
Progress Note, Physician Chief Complaint: Pt A&Ox3; anxious; UE tremors; No chest pain presently.Anxious about wanting to pay her rent and not lose her apartment (though presently is in a skilled nursing). History of Present Illness: The patient is a 67 year old female, with a significant past medical history of Parkinsons, epilepsy (last seizure 2-5 years ago), insomnia, and anxiety/ schizophrenia, who presents to the emergency department with, an episode of pressure-like chest pain that was central, moderate in intensity, occurred at rest, and lasted.about an hour (Pt had another episode of chest discomfort years ago). She does little exercise (Parkinson's). Multipack/day cigarettes from age [age], then quit cold turkey. Occasional drink (sangria); never a heavy drinker. No family hx CAD, though pt admits she does not have contact with many family members. She denies recent palpitations, diaphoresis, or shortness of breath. She denies recent fevers, chills, headache or dizziness. She denies recent nausea, vomit, diarrhea or constipation. She denies recent dysuria, frequency, urgency or hematuria. 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 Primary Care Physician: Dr. Salvador - Current Medication List Current Medications: Active Medications Amantadine HCl (Symmetrel -) 100 mg PO BID [facility] Last Admin: 05/25/18 22:42 Dose: Not Given Aspirin (Asa -) 81 mg PO DAILY [facility] Last Admin: 05/25/18 09:57 Dose: 81 mg Atorvastatin Calcium (Lipitor -) 20 mg PO HS [facility] Last Admin: 05/25/18 22:40 Dose: Not Given Carbidopa/Levodopa (Sinemet *Cr* 25/100 -) 1 combo PO TID [facility] Last Admin: 05/26/18 05:59 Dose: 1 combo Enoxaparin Sodium (Lovenox -) 40 mg SQ DAILY [facility] Last Admin: 05/25/18 09:58 Dose: 40 mg Ceftriaxone Sodium 1 gm/ (Dextrose) 50 mls @ 100 mls/hr IVPB DAILY [facility]; Protocol Last Admin: 05/25/18 10:33 Dose: 100 mls/hr Lamotrigine (Lamictal -) 25 mg PO BID [facility] Last Admin: 05/25/18 22:40 Dose: Not Given Levetiracetam (Keppra Xr -) 500 mg PO BID [facility] Last Admin: 05/25/18 22:39 Dose: Not Given Quetiapine Fumarate (Seroquel -) 200 mg PO [facility] Last Admin: 05/25/18 22:41 Dose: Not Given Ramelteon (Rozerem) 8 mg PO [facility] Last Admin: 05/25/18 22:41 Dose: Not Given Sertraline HCl (Zoloft -) 25 mg PO [facility] Last Admin: 05/25/18 22:42 Dose: Not Given Zolpidem Tartrate (Ambien -) 5 mg PO PRN PRN Reason: INSOMNIA Last Admin: 05/25/18 22:42 Dose: 5 mg - Objective Vital Signs: Vital Signs Temperature 98.2 F 05/26/18 05:56 Pulse Rate 78 05/26/18 05:56 Respiratory Rate 20 05/26/18 05:56 Blood Pressure 121/70 05/26/18 05:56 O2 Sat by Pulse Oximetry (%) 99 05/25/18 17:11 Constitutional: Yes: Anxious Eyes: Yes: WNL HENT: Yes: WNL Neck: Yes: WNL Cardiovascular: Yes: Murmur (2/4 diastolic murmur, RSB-->base), S1, S2 Respiratory: Yes: WNL Gastrointestinal: Yes: Soft ...Rectal Exam: Yes: Deferred Genitourinary: No: Anuria Breast(s): Yes: WNL Musculoskeletal: Yes: Muscle Weakness Extremities: Yes: Other Edema: No Peripheral Pulses WNL: Yes Integumentary: Yes: WNL Neurological: Yes: Alert, Oriented, Tremors, Unsteady Gait, Weakness Psychiatric: Yes: Alert, Oriented, Other Labs: CBC, BMP 05/25/18 05:20 05/25/18 05:20 - ....Imaging Other: Image Reviewed (telemetry: NSR; no arrhythmias) Problem List - Problems (1) Schizophrenia Code(s): F20.9 - SCHIZOPHRENIA, UNSPECIFIED (2) Anxiety Code(s): F41.9 - ANXIETY DISORDER, UNSPECIFIED (3) Aortic regurgitation Assessment/Plan: ECHO: normal LVEF; abnormal diastolic compliance; modedrate AR. Code(s): I35.1 - NONRHEUMATIC AORTIC (VALVE) INSUFFICIENCY (4) Chest pain Assessment/Plan: TNI < 0.0x x 3. EKG: normal sinus rhythm; normal study. Telemetry: no arrhythmias. On statin. F/u TSH. For stress Lexiscan MIBI. Code(s): R07.9 - CHEST PAIN, UNSPECIFIED Qualifiers: Chest pain type: unspecified Qualified Code(s): R07.9 - Chest pain, unspecified (5) Epilepsy Code(s): G40.909 - EPILEPSY, UNSP, NOT INTRACTABLE, WITHOUT STATUS EPILEPTICUS (6) Parkinsons Code(s): G20 - PARKINSON'S DISEASE (7) UTI (urinary tract infection) Code(s): N39.0 - URINARY TRACT INFECTION, SITE NOT SPECIFIED
[2018-05-26] MEDS ORDERED: REGADENOSON 0.4 MG/5 ML PRE-FILLED SYRINGE IVPUSH ONE ×2 (10:15→12:11)
--- NOTE | 2018-05-26 10:25 | PN ---
Progress Note (short form) - Note Progress Note: no chest pain Vital Signs - 24 hr 05/25/18 05/25/18 05/25/18 14:21 15:31 16:30 Temperature 98 F Pulse Rate 77 Pulse Rate [ 86 82 Apical] Respiratory 17 18 20 Rate Blood Pressure 112/65 Blood Pressure 112/62 130/66 [Left] O2 Sat by Pulse 97 99 Oximetry (%) 05/25/18 05/25/18 05/25/18 17:00 17:11 22:00 Temperature 97.9 F 98.1 F Pulse Rate 86 98 H Pulse Rate [ Apical] Respiratory 20 18 20 Rate Blood Pressure 96/63 109/66 Blood Pressure [Left] O2 Sat by Pulse 99 Oximetry (%) 05/26/18 05/26/18 05:56 10:00 Temperature 98.2 F 98 F Pulse Rate 78 103 H Pulse Rate [ Apical] Respiratory 20 20 Rate Blood Pressure 121/70 118/66 Blood Pressure [Left] O2 Sat by Pulse Oximetry (%) Current Medications Generic Name Dose Route Start Last Admin Trade Name Freq PRN Reason Stop Dose Admin Amantadine HCl 100 mg 05/25/18 10:00 05/25/18 22:42 Symmetrel - PO Not Given BID [facility] Aspirin 81 mg 05/25/18 10:00 05/25/18 09:57 Asa - PO 81 mg DAILY [facility] Administration Atorvastatin Calcium 20 mg 05/25/18 22:00 05/25/18 22:40 Lipitor - PO Not Given HS [facility] Carbidopa/Levodopa 1 combo 05/25/18 06:00 05/26/18 05:59 Sinemet *Cr* 25/100 - PO 1 combo TID [facility] Administration Enoxaparin Sodium 40 mg 05/25/18 10:00 05/25/18 09:58 Lovenox - SQ 40 mg DAILY [facility] Administration Ceftriaxone Sodium 1 gm/ 50 mls @ 100 mls/hr 05/25/18 10:00 05/25/18 10:33 Dextrose IVPB 100 mls/hr DAILY [facility] Administration Protocol Lamotrigine 25 mg 05/25/18 10:00 05/25/18 22:40 Lamictal - PO Not Given BID [facility] Levetiracetam 500 mg 05/25/18 10:00 05/25/18 22:39 Keppra Xr - PO Not Given BID [facility] Quetiapine Fumarate 200 mg 05/25/18 22:00 05/25/18 22:41 Seroquel - PO Not Given HS [facility] Ramelteon 8 mg 05/25/18 22:00 05/25/18 22:41 Rozerem PO Not Given HS [facility] Sertraline HCl 25 mg 05/25/18 22:00 05/25/18 22:42 Zoloft - PO Not Given HS [facility] Zolpidem Tartrate 5 mg 05/25/18 04:52 05/25/18 22:42 Ambien - PO 5 mg HS PRN Administration INSOMNIA Laboratory Results - last 24 hr 05/25/18 15:00 Creatine Kinase 32 Troponin I < 0.02 S1 S2 RRR Lungs clear Abd- soft, NT no edema PLAN troponin negative on iv antibiotics for UTI continue with meds Stress test today- if negative may dc to [facility] on po antibiotics Problem List - Problems (1) Anxiety Code(s): F41.9 - ANXIETY DISORDER, UNSPECIFIED (2) Aortic regurgitation Code(s): I35.1 - NONRHEUMATIC AORTIC (VALVE) INSUFFICIENCY (3) Chest pain Code(s): R07.9 - CHEST PAIN, UNSPECIFIED Qualifiers: Chest pain type: unspecified Qualified Code(s): R07.9 - Chest pain, unspecified (4) Epilepsy Code(s): G40.909 - EPILEPSY, UNSP, NOT INTRACTABLE, WITHOUT STATUS EPILEPTICUS (5) Parkinsons Code(s): G20 - PARKINSON'S DISEASE (6) Schizophrenia Code(s): F20.9 - SCHIZOPHRENIA, UNSPECIFIED (7) UTI (urinary tract infection) Code(s): N39.0 - URINARY TRACT INFECTION, SITE NOT SPECIFIED
[2018-05-26] MEDS ORDERED: PT OWN MED DRAWER 7, Y5N ONE ×2 (11:25→16:20)
[2018-05-26] MEDS: ASPIRIN 81 MG CHEWABLE TABLETS PO SCH (14:40)
[2018-05-26] MEDS: levETIRAcetam XR 500 MG TAB PO SCH ×2 (14:42→16:25)
[2018-05-26] MEDS: lamoTRIgine 25 MG TABLET PO SCH (14:43)
[2018-05-26] MEDS: ENOXAPARIN NA (PORCINE) 40 MG/0.4 ML DISP.SYRIN SQ SCH (14:44)
[2018-05-26] MEDS: CEFTRIAXONE 1 GM in DEXTROSE 5%-WATER - 50 ML IVPB SCH (14:45)
[2018-05-26] MEDS: AMANTADINE HCL 100 MG TABLET PO SCH (14:46)
[2018-05-26 15:52] VITALS: BP 134/97; PULSE 143; TEMP 97.9
[2018-05-26] MEDS ORDERED: ONDANSETRON *ODT* 4 MG TABLET SL PRN (16:36)
[2018-05-26] MEDS ORDERED: SODIUM PHOSPHATE/NA BIPHOS 133 ML ENEMA PR ONE (16:36)
== END 2018-05-26 19:28 ==
LOC: JER 18:59 → JERBED 05-25 00:56 → J4W 05-25 15:37
PROVIDERS: ADMIT Internal Medicine; ATTEND Internal Medicine
PROC: 3E03329 Introduction of Other Anti-infective into Peripheral Vein, Percutaneous Approach (ICD-10-PCS; principal; 2018-05-25)
PROC: 3E033GC Introduction of Other Therapeutic Substance into Peripheral Vein, Percutaneous Approach (ICD-10-PCS; 2018-05-25)
PROC: 3E0337Z Introduction of Electrolytic and Water Balance Substance into Peripheral Vein, Percutaneous Approach (ICD-10-PCS; 2018-05-25)
DX: R07.89 Other chest pain (principal); N39.0 Urinary tract infection, site not specified; G40.909 Epilepsy, unspecified, not intractable, without status epilepticus; G20 Parkinson's disease; F20.0 Paranoid schizophrenia; I10 Essential (primary) hypertension; E88.09 Other disorders of plasma-protein metabolism, not elsewhere classified; F41.9 Anxiety disorder, unspecified; I35.1 Nonrheumatic aortic (valve) insufficiency; Z87.891 Personal history of nicotine dependence; Z79.82 Long term (current) use of aspirin
CPT/HCPCS: 36415; 71045-TC-FY; 78452-TC; 80053; 80061; 81003; 81015; 82550; 83721; 83735; 84100; 84484; 85025; 87086; 87186; 93005; 93010; 93017; 93306-TC; 96361; 96365; 96372; 96375; 99284-25; A9502; G0378; J2785

== ENCOUNTER 2023-10-24 09:56 | Inpatient (IN) | payer OTHER ==
[2023-10-24] MEDS: LACTATED RINGERS SOLUTION 1000 ML INFUS.BAG IV ONE (12:05)
[2023-10-24] MEDS: DIVALPROEX NA *ER* EXTEND REL 500 MG TABLET.SA (FP) PO ONE (12:15)
[2023-10-24] MEDS: CARBIDOPA/LEVODOPA 25/100 TABLET (FP) PO ONE (12:15)
[2023-10-24] MEDS: levETIRAcetam 500 MG TABLET (FP) PO ONE (12:15)
[2023-10-24] MEDS: GABAPENTIN 300 MG CAPSULE PO ONE (12:15)
[2023-10-24 12:23] LABS: HEMATOCRIT 34.9 % (32.4-45.2); HEMOGLOBIN 10.9 GM/dL (10.7-15.3); MCH 25.7 pg (25.7-33.7); MCHC 31.2 g/dl (32.0-36.0); MEAN CELL VOLUME 82.3 fl (80-96); MEAN PLT VOLUME 8.9 fl (7.5-11.1); PLATELET COUNT 568 10^3/uL (134-434); RBC 4.24 M/mm3 (3.60-5.2); RDW 20.2 % (11.6-15.6)
[2023-10-24 12:33] LABS: POTASSIUM 4.6 mmol/L (3.5-5.1)
[2023-10-24 12:35] LABS: BLOOD UREA NITROGEN 15.7 mg/dL (7-18); CALCIUM 9.6 mg/dL (8.5-10.1)
[2023-10-24 12:37] LABS: CREATININE 0.8 mg/dL (0.55-1.3)
[2023-10-24 12:39] LABS: BILIRUBIN,TOTAL 0.6 mg/dL (0.2-1); TOT PROT 7.2 g/dl (6.4-8.2)
[2023-10-24] MEDS ORDERED: PIPERACILLIN/TAZOB 4.5 GM 4.5 GM/100 ML BAG IVPB ONE (13:19)
[2023-10-24 13:20] LABS: N-TERMINAL BNP 904.6 pg/ml (5-125)
[2023-10-24] MEDS: PIPERACILLIN/TAZOB 4.5 GM 4.5 GM in DEXTROSE 5%-WATER 100 ML IVPB ONE (13:30)
[2023-10-24] MEDS: SODIUM CHLORIDE 1,000 ML IV ONE (13:30)
[2023-10-24 13:31] LABS: EPI CELLS 19 /uL (0-25.1); HYALINE CASTS 0 /uL (0-3.1); URINE APPEARANCE CLEAR; URINE BACTERIA 209 /uL (0-1359); URINE BILIRUBIN 3+ (NEGATIVE); URINE COLOR DK YELLOW; URINE GLUCOSE (UA) NEGATIVE (NEGATIVE); URINE KETONE 3+ (NEGATIVE); URINE LEUK ESTERASE NEGATIVE (NEGATIVE); URINE NITRITE NEGATIVE (NEGATIVE); URINE PROTEIN 2+ (NEGATIVE)
[2023-10-24 13:41] LABS: ANISOCYTOSIS 1+; MACROCYTOSIS 0; OVALOCYTE 1+
[2023-10-24] MEDS: VANCOMYCIN HCL 1,500 MG in DEXTROSE 5%-WATER - 500 ML IVPB ONE (14:16)
[2023-10-24] MEDS: VANCOMYCIN PREMIX 1.5 GM 1,500 MG/300 ML BAG IVPB ONE (14:28)
[2023-10-24 14:47] LABS: URINE RBC 28 /uL (0-23.9); URINE WBC 27 /uL (0-25.8)
[2023-10-24] MEDS: SODIUM CHLORIDE 1,000 ML IV SCH (20:24)
[2023-10-24] MEDS: INSULIN ASPART SLIDING SCALE (NOVOLOG) 1 VIAL SQ SCH (22:14)
[2023-10-24] MEDS ORDERED: VALPROATE SODIUM 500 MG/5 ML VIAL ONE (23:32)
[2023-10-24] MEDS ORDERED: levETIRAcetam 500 MG/5 ML INJECTION VIAL IVPB ONE (23:32)
[2023-10-24] MEDS: levETIRAcetam 500 MG/5 ML INJECTION VIAL IVPB ONE (23:39)
[2023-10-25] MEDS: VALPROATE SODIUM 500 MG/5 ML VIAL IVPB ONE (00:14)
[2023-10-25] MEDS: PIPERACILLIN/TAZOB 4.5 GM 4.5 GM in DEXTROSE 5%-WATER 100 ML IVPB ONE (01:28)
[2023-10-25] MEDS ORDERED: VANCOMYCIN/WATER 1250 MG 1,250 MG/250 ML BAG IVPB SCH (02:00)
[2023-10-25 02:22] VITALS: BMI 34.2
[2023-10-25] MEDS: VANCOMYCIN/WATER 1250 MG 1,250 MG/250 ML BAG IVPB SCH (02:32)
[2023-10-25] MEDS ORDERED: ALBUTEROL SO4 HFA INHALER IH PRN (04:49)
[2023-10-25] MEDS: DEXTROSE 5%-NORMAL SALINE 1,000 ML IV SCH (05:59)
[2023-10-25] MEDS ORDERED: VALPROATE SODIUM 500 MG/5 ML VIAL IVPB SCH (06:00)
[2023-10-25] MEDS: VALPROATE SODIUM INJECTION 250 MG in SODIUM CHLORIDE 100 ML IVPB SCH (06:00)
[2023-10-25] MEDS ORDERED: PIPERACILLIN/TAZOB 4.5 GM 4.5 GM in DEXTROSE 5%-WATER 100 ML IVPB SCH (09:00)
[2023-10-25 09:44] LABS: INR 1.08 (0.83-1.09); PROTHROMBIN TIME (PATIENT) 12.2 SEC (9.7-13.0)
[2023-10-25 09:45] LABS: HEMATOCRIT 31.2 % (32.4-45.2); HEMOGLOBIN 9.7 GM/dL (10.7-15.3); MCHC 31.1 g/dl (32.0-36.0); MEAN CELL VOLUME 83.8 fl (80-96); MEAN PLT VOLUME 9.1 fl (7.5-11.1); PLATELET COUNT 483 10^3/uL (134-434); RBC 3.72 M/mm3 (3.60-5.2); RDW 19.9 % (11.6-15.6); WHITE BLOOD COUNT 15.8 K/mm3 (4.0-10.0)
[2023-10-25 09:46] LABS: ACTIVATED PTT 29.4 SECONDS (25.2-36.5)
[2023-10-25 10:26] LABS: ANISOCYTOSIS 0; MACROCYTOSIS 0
[2023-10-25 10:33] LABS: POTASSIUM 3.8 mmol/L (3.5-5.1)
[2023-10-25 10:41] LABS: CALCIUM 9.3 mg/dL (8.5-10.1)
[2023-10-25 10:42] LABS: BLOOD UREA NITROGEN 12.8 mg/dL (7-18)
[2023-10-25 10:46] LABS: CREATININE 0.8 mg/dL (0.55-1.3); PHOSPHOROUS 2.6 mg/dL (2.5-4.9)
[2023-10-25] MEDS: PIPERACILLIN/TAZOB 4.5 GM 4.5 GM in DEXTROSE 5%-WATER 100 ML IVPB SCH (11:18)
[2023-10-25] MEDS: ARTIFICIAL TEARS OPHTHALMIC DROPS OU SCH (11:19)
[2023-10-25] MEDS: ASPIRIN 81 MG CHEWABLE TABLETS PO SCH (11:19)
[2023-10-25] MEDS: SUCRALFATE 1 GM/10 ML UNIT DOSE CUPS PO SCH (11:20)
[2023-10-25] MEDS: APIXABAN 5 MG TABLET PO SCH (11:20)
[2023-10-25] MEDS: levETIRAcetam 500 MG/5 ML INJECTION VIAL IVPB SCH (11:21)
[2023-10-25] MEDS: lamoTRIgine 100 MG TABLET PO SCH (11:21)
[2023-10-25] MEDS: NYSTATIN 100,000 UNIT/GM TOPICAL CREAM 15 GM TUBE TP SCH (11:22)
[2023-10-25] MEDS: PANTOPRAZOLE SODIUM 40 MG VIAL IVPUSH SCH (11:22)
[2023-10-25] MEDS: metoPROLOL SUCCINATE 25 MG TAB.SR.24H (FP) PO SCH (11:22)
[2023-10-25] MEDS: BACITRACIN ZINC 15 GM TUBE TOPICAL OINTMENT TP SCH (11:23)
[2023-10-25] MEDS ORDERED: DEXTROSE 5%-0.45% SALINE 995 ML with POTASSIUM CHLORIDE 10 MEQ IV SCH (14:00)
[2023-10-25] MEDS: D5-1/2NS+10 MEQ KCL - 10 MEQ/1,000 ML INFUS.BAG IV SCH (14:32)
[2023-10-25] MEDS: GABAPENTIN 300 MG CAPSULE PO SCH (15:41)
[2023-10-25] MEDS: ATORVASTATIN CA 20 MG TABLET (FP) PO SCH (21:30)
[2023-10-25] MEDS: QUEtiapine FUMARATE 50 MG TABLET PO SCH (21:30)
[2023-10-25] MEDS: lamoTRIgine 25 MG TABLET PO SCH (21:31)
[2023-10-25] MEDS ORDERED: SERTRALINE HCL 25 MG TABLET (FP) PO SCH (22:00)
[2023-10-26 11:19] LABS: ALBUMIN 2.5 g/dl (3.4-5.0); BLOOD UREA NITROGEN 8.6 mg/dL (7-18); CALCIUM 8.9 mg/dL (8.5-10.1)
[2023-10-26 11:21] LABS: CREATININE 0.7 mg/dL (0.55-1.3)
[2023-10-26 11:23] LABS: BILIRUBIN,TOTAL 0.8 mg/dL (0.2-1); TOT PROT 6.4 g/dl (6.4-8.2)
[2023-10-26] MEDS: AMANTADINE HCL 100MG/10 ML UNIT DOSE CUPS PO SCH (12:09)
[2023-10-26 14:02] LABS: BASO % 0.5 % (0-2.0); EOS % 6.2 % (0-4.5); HEMATOCRIT 32.8 % (32.4-45.2); HEMOGLOBIN 10.3 GM/dL (10.7-15.3); MCH 26.6 pg (25.7-33.7); MCHC 31.3 g/dl (32.0-36.0); MEAN PLT VOLUME 9.3 fl (7.5-11.1); MONO % 9.2 % (3.8-10.2); NEUT % 63.1 % (42.8-82.8); PLATELET COUNT 467 10^3/uL (134-434); RBC 3.87 M/mm3 (3.60-5.2); RDW 20.5 % (11.6-15.6); WHITE BLOOD COUNT 15.9 K/mm3 (4.0-10.0)
[2023-10-26 14:18] LABS: POTASSIUM 3.6 mmol/L (3.5-5.1)
[2023-10-26 14:21] LABS: CALCIUM 8.9 mg/dL (8.5-10.1)
[2023-10-26 14:22] LABS: ALBUMIN 2.5 g/dl (3.4-5.0); BLOOD UREA NITROGEN 8.4 mg/dL (7-18)
[2023-10-26 14:24] LABS: CREATININE 0.6 mg/dL (0.55-1.3)
[2023-10-26 14:26] LABS: BILIRUBIN,TOTAL 0.5 mg/dL (0.2-1); TOT PROT 6.3 g/dl (6.4-8.2)
[2023-10-26 14:32] LABS: ANISOCYTOSIS 2+; MACROCYTOSIS 0; OVALOCYTE 1+; TARGET CELLS 2+
[2023-10-26] MEDS ORDERED: ALBUTEROL SO4 2.5/IPRATROPIUM 0.5 INH SOL 3 ML VIAL.NEB. NEB PRN (15:28)
[2023-10-27] MEDS: PIPERACILLIN/TAZOB 3.375 GM 3.375 GM in DEXTROSE 5%-WATER - 50 ML IVPB SCH (02:15)
[2023-10-27] MEDS ORDERED: ACETAMINOPHEN 1000 MG/100 ML BAG IVPB ONE (03:32)
[2023-10-27] MEDS: ACETAMINOPHEN 1000 MG/100 ML BAG IVPB ONE ×2 (06:27→12:24)
[2023-10-27 09:58] LABS: HEMATOCRIT 31.6 % (32.4-45.2); HEMOGLOBIN 9.7 GM/dL (10.7-15.3); MCH 26.1 pg (25.7-33.7); MCHC 30.7 g/dl (32.0-36.0); MEAN CELL VOLUME 84.8 fl (80-96); MEAN PLT VOLUME 9.2 fl (7.5-11.1); PLATELET COUNT 449 10^3/uL (134-434); RBC 3.72 M/mm3 (3.60-5.2); WHITE BLOOD COUNT 18.8 K/mm3 (4.0-10.0)
[2023-10-27 10:18] LABS: POTASSIUM 3.2 mmol/L (3.5-5.1)
[2023-10-27 10:21] LABS: CALCIUM 8.4 mg/dL (8.5-10.1)
[2023-10-27 10:22] LABS: BLOOD UREA NITROGEN 8.1 mg/dL (7-18)
[2023-10-27 10:26] LABS: CREATININE 0.8 mg/dL (0.55-1.3)
[2023-10-27] MEDS ORDERED: PIPERACILLIN/TAZOB 3.375 GM 3.375 GM in DEXTROSE 5%-WATER - 50 ML IVPB ONE (11:41)
[2023-10-27 11:58] LABS: ANISOCYTOSIS 0; MACROCYTOSIS 0
[2023-10-27] MEDS: SODIUM CHLORIDE 1,000 ML IV STA (12:20)
[2023-10-27] MEDS: DOXYCYCLINE INJECTION 100 MG in DEXTROSE 5%-WATER 100 ML IVPB SCH (12:56)
[2023-10-27] MEDS: CEFTRIAXONE 1 GM in DEXTROSE 5%-WATER - 50 ML IVPB SCH (12:58)
[2023-10-27] MEDS: KCL 10 MEQ IVPB 10 MEQ/100 ML INFUS.BAG IVPB SCH (13:01)
[2023-10-27] MEDS ORDERED: POTASSIUM CHLORIDE 20 MEQ in DEXTROSE 5%-WATER - 1,000 ML IV SCH (13:15)
[2023-10-27] MEDS: POTASSIUM CHLORIDE 20 MEQ in DEXTROSE 5%-WATER - 1,000 ML IV SCH (15:04)
[2023-10-27] MEDS: VANCOMYCIN/WATER FOR INJ (PEG) 1,000 MG/200 ML BAG IVPB ONE (15:13)
[2023-10-28] MEDS: DEXTROSE 50%-WATER 25 GM/50 ML DISP.SYRIN IVPUSH ONE ×2 (02:34→05:51)
[2023-10-28 14:18] LABS: POTASSIUM 3.7 mmol/L (3.5-5.1)
[2023-10-28 14:19] LABS: CALCIUM 8.7 mg/dL (8.5-10.1)
[2023-10-28 14:21] LABS: BLOOD UREA NITROGEN 8.7 mg/dL (7-18); MAGNESIUM 1.7 mg/dL (1.8-2.4)
[2023-10-28 14:24] LABS: CREATININE 0.9 mg/dL (0.55-1.3)
[2023-10-28 14:25] LABS: BILIRUBIN,TOTAL 0.7 mg/dL (0.2-1); TOT PROT 5.6 g/dl (6.4-8.2)
[2023-10-28 14:26] LABS: ALBUMIN 2.2 g/dl (3.4-5.0)
[2023-10-29 07:29] LABS: HEMATOCRIT 30.3 % (32.4-45.2); HEMOGLOBIN 9.4 GM/dL (10.7-15.3); MCH 26.3 pg (25.7-33.7); MCHC 31.1 g/dl (32.0-36.0); MEAN CELL VOLUME 84.6 fl (80-96); MEAN PLT VOLUME 10.6 fl (7.5-11.1); PLATELET COUNT 451 10^3/uL (134-434); RBC 3.58 M/mm3 (3.60-5.2); RDW 21.8 % (11.6-15.6); WHITE BLOOD COUNT 23.5 K/mm3 (4.0-10.0)
[2023-10-29 07:35] LABS: POTASSIUM 3.7 mmol/L (3.5-5.1)
[2023-10-29 07:42] LABS: CALCIUM 8.9 mg/dL (8.5-10.1)
[2023-10-29 07:44] LABS: ALBUMIN 2.2 g/dl (3.4-5.0); BLOOD UREA NITROGEN 8.4 mg/dL (7-18)
[2023-10-29 07:46] LABS: CREATININE 0.9 mg/dL (0.55-1.3)
[2023-10-29 07:47] LABS: BILIRUBIN,TOTAL 0.6 mg/dL (0.2-1); TOT PROT 5.6 g/dl (6.4-8.2)
[2023-10-29 08:53] LABS: ANISOCYTOSIS 2+; MACROCYTOSIS 0
[2023-10-29] MEDS: D5-1/2NS+20 MEQ KCL - 20 MEQ/1,000 ML INFUS.BAG IV SCH (15:44)
[2023-10-29] MEDS: SUCRALFATE 1 GM/10 ML UNIT DOSE CUPS PO SCH (18:31)
[2023-10-30 09:25] LABS: HEMATOCRIT 28.6 % (32.4-45.2); HEMOGLOBIN 9.2 GM/dL (10.7-15.3); MCH 26.7 pg (25.7-33.7); MCHC 32.3 g/dl (32.0-36.0); MEAN CELL VOLUME 82.7 fl (80-96); MEAN PLT VOLUME 9.1 fl (7.5-11.1); PLATELET COUNT 313 10^3/uL (134-434); RBC 3.46 M/mm3 (3.60-5.2); RDW 20.9 % (11.6-15.6); WHITE BLOOD COUNT 17.6 K/mm3 (4.0-10.0)
[2023-10-30 09:50] LABS: POTASSIUM 3.7 mmol/L (3.5-5.1)
[2023-10-30 09:54] LABS: CALCIUM 8.8 mg/dL (8.5-10.1)
[2023-10-30 09:55] LABS: BLOOD UREA NITROGEN 8.7 mg/dL (7-18)
[2023-10-30 09:58] LABS: CREATININE 0.8 mg/dL (0.55-1.3)
[2023-10-30 09:59] LABS: BILIRUBIN,TOTAL 0.5 mg/dL (0.2-1); TOT PROT 5.4 g/dl (6.4-8.2)
[2023-10-30 10:50] LABS: ANISOCYTOSIS 1+; CORRECTED WBC 15.04 K/mm3; MACROCYTOSIS 0; OVALOCYTE 1+
[2023-10-30 14:53] LABS: ARTERIAL BLD GAS O2 SATURATION 91.2 % (95-98); ARTERIAL BLOOD GAS BASE EXCESS -6.3 mmol/L (-2-2); ARTERIAL BLOOD GAS PO2 62.3 mmHg (80-100); ARTERIAL BLOOD GAS pH 7.356 (7.350-7.450)
[2023-10-30 14:54] LABS: ALLENS TEST POSITIVE
[2023-10-31 08:13] LABS: HEMATOCRIT 29.8 % (32.4-45.2); HEMOGLOBIN 9.3 GM/dL (10.7-15.3); MCH 25.9 pg (25.7-33.7); MCHC 31.1 g/dl (32.0-36.0); MEAN CELL VOLUME 83.3 fl (80-96); MEAN PLT VOLUME 9.9 fl (7.5-11.1); PLATELET COUNT 278 10^3/uL (134-434); RBC 3.58 M/mm3 (3.60-5.2); RDW 20.8 % (11.6-15.6); WHITE BLOOD COUNT 26.4 K/mm3 (4.0-10.0)
[2023-10-31 08:17] LABS: POTASSIUM 3.7 mmol/L (3.5-5.1)
[2023-10-31 08:26] LABS: BLOOD UREA NITROGEN 10.5 mg/dL (7-18); CALCIUM 8.8 mg/dL (8.5-10.1)
[2023-10-31 08:29] LABS: CREATININE 0.9 mg/dL (0.55-1.3)
[2023-10-31 08:31] LABS: BILIRUBIN,TOTAL 0.5 mg/dL (0.2-1); TOT PROT 5.5 g/dl (6.4-8.2)
[2023-10-31 09:44] LABS: ANISOCYTOSIS 0; MACROCYTOSIS 0
[2023-10-31] MEDS: OLANZapine 2.5 MG TABLET PO SCH (10:00)
[2023-10-31] MEDS: methylPREDNISolone NA SUCC 40 MG/1 ML VIAL IVPUSH ONE (21:57)
[2023-10-31] MEDS ORDERED: DEXTROSE 50%-WATER 25 GM/50 ML DISP.SYRIN ONE (22:16)
[2023-10-31] MEDS: DEXTROSE 50%-WATER - 25 GM/50 ML VIAL IVPUSH ONE (22:20)
[2023-11-01] MEDS ORDERED: DEXTROSE 50%-WATER 25 GM/50 ML DISP.SYRIN ONE (06:31)
[2023-11-01] MEDS: DEXTROSE 50%-WATER 25 GM/50 ML DISP.SYRIN IVPUSH ONE (06:45)
[2023-11-01] MEDS: DEXTROSE 50%-WATER - 25 GM/50 ML VIAL IVPUSH ONE (06:46)
[2023-11-01 07:31] LABS: ARTERIAL BLD GAS O2 SATURATION 65.1 % (95-98); ARTERIAL BLOOD GAS BASE EXCESS -12.5 mmol/L (-2-2); ARTERIAL BLOOD GAS PO2 45.4 mmHg (80-100); ARTERIAL BLOOD GAS pH 7.101 (7.350-7.450)
[2023-11-01 07:33] LABS: ALLENS TEST POSITIVE
[2023-11-01] MEDS: methylPREDNISolone NA SUCC 40 MG/1 ML VIAL IVPUSH SCH (09:41)
[2023-11-01 12:45] LABS: HEMATOCRIT 33.3 % (32.4-45.2); HEMOGLOBIN 9.9 GM/dL (10.7-15.3); MCH 25.6 pg (25.7-33.7); MCHC 29.9 g/dl (32.0-36.0); MEAN CELL VOLUME 85.8 fl (80-96); MEAN PLT VOLUME 8.8 fl (7.5-11.1); PLATELET COUNT 154 10^3/uL (134-434); RBC 3.88 M/mm3 (3.60-5.2); RDW 22.4 % (11.6-15.6)
[2023-11-01 12:52] LABS: WHITE BLOOD COUNT 33.3 K/mm3 (4.0-10.0)
[2023-11-01] MEDS ORDERED: morphine SULFATE 4 MG/ML VIAL ONE (13:01)
[2023-11-01 13:03] LABS: POTASSIUM 3.9 mmol/L (3.5-5.1)
[2023-11-01 13:04] LABS: CALCIUM 9.2 mg/dL (8.5-10.1)
[2023-11-01 13:05] LABS: ALBUMIN 1.9 g/dl (3.4-5.0); BLOOD UREA NITROGEN 13.5 mg/dL (7-18)
[2023-11-01 13:08] LABS: CREATININE 1.1 mg/dL (0.55-1.3)
[2023-11-01] MEDS ORDERED: PROPOFOL 1,000,000 MCG/100 ML VIAL ONE (13:09)
[2023-11-01 13:10] LABS: BILIRUBIN,TOTAL 0.5 mg/dL (0.2-1)
[2023-11-01] MEDS ORDERED: MIDAZOLAM HCL 5 MG/1 ML Single Dose Vial ONE (13:10)
[2023-11-01 13:29] LABS: ANISOCYTOSIS 2+; MACROCYTOSIS 0; TARGET CELLS 1+
[2023-11-01] MEDS: morphine SULFATE 4 MG/ML VIAL IVPUSH ONE (13:29)
[2023-11-01] MEDS: DEXMEDETOMIDINE PREMIX 400 MCG/100 ML BAG IVPB SCH (14:39)
[2023-11-01] MEDS: SODIUM CHLORIDE 0.9% 500 ML INFUS.BAG IV ONE (14:50)
[2023-11-01] MEDS ORDERED: DEXMEDETOMIDINE PREMIX 400 MCG/100 ML BAG IVPB ONE (15:16)
[2023-11-01] MEDS: PIPERACILLIN/TAZOB 4.5 GM 4.5 GM in DEXTROSE 5%-WATER 100 ML IVPB SCH (15:29)
[2023-11-01] MEDS ORDERED: NOREPINEPHRINE BITARTRATE 4 MG/4 ML ML IV ONE (17:14)
[2023-11-01] MEDS: NOREPINEPHRINE 0.9 % NACL 8 MG/250 ML BAG IVPB SCH (17:15)
[2023-11-01] MEDS: VANCOMYCIN PREMIX 1.5 GM 1,500 MG/300 ML BAG IVPB SCH (18:36)
[2023-11-01] MEDS ORDERED: ALBUTEROL SO4 HFA INHALER IH PRN (20:33)
[2023-11-01 21:35] LABS: ARTERIAL BLD GAS O2 SATURATION 98.3 % (95-98); ARTERIAL BLOOD GAS BASE EXCESS -11.4 mmol/L (-2-2); ARTERIAL BLOOD GAS PO2 146.7 mmHg (80-100)
[2023-11-01 21:37] LABS: ALLENS TEST POSITIVE; VENT MODE A/C; VENT RATE 24
[2023-11-01 21:38] LABS: ARTERIAL BLOOD GAS pH 7.184 (7.350-7.450)
[2023-11-01] MEDS: ARTIFICIAL TEARS OPHTHALMIC DROPS OU SCH (21:39)
[2023-11-01] MEDS: MUPIROCIN 2% TOPICAL OINTMENT FOR DECOLONIZATION NS SCH (21:39)
[2023-11-01] MEDS: levETIRAcetam 500 MG/5 ML INJECTION VIAL IVPB SCH (21:39)
[2023-11-01] MEDS: INSULIN ASPART SLIDING SCALE (NOVOLOG) 1 VIAL SQ SCH (21:40)
[2023-11-01] MEDS: CHLORHEXIDINE GLUCONATE 4% CLEANSER FOR DECOLONIZATION TP SCH (21:40)
[2023-11-01] MEDS: SODIUM BICARBONATE 8.4% 50 MEQ/50 ML DISP.SYRIN IVPUSH ONE (21:45)
[2023-11-01] MEDS ORDERED: MUPIROCIN 2% TOPICAL OINTMENT FOR DECOLONIZATION NS SCH (22:00)
[2023-11-01] MEDS ORDERED: CHLORHEXIDINE GLUCONATE 4% CLEANSER FOR DECOLONIZATION TP SCH (22:00)
[2023-11-01] MEDS: APIXABAN 5 MG TABLET PO SCH (22:46)
[2023-11-01] MEDS: lamoTRIgine 25 MG TABLET PO SCH (22:47)
[2023-11-01] MEDS: GABAPENTIN 300 MG CAPSULE PO SCH (22:47)
[2023-11-01] MEDS: ATORVASTATIN CA 80 MG TABLET (FP) PO SCH (22:47)
[2023-11-01] MEDS: QUEtiapine FUMARATE 50 MG TABLET PO SCH (22:47)
[2023-11-01] MEDS: NYSTATIN 100,000 UNIT/GM TOPICAL CREAM 15 GM TUBE TP SCH (23:11)
[2023-11-02] MEDS: VALPROATE SODIUM INJECTION 250 MG in SODIUM CHLORIDE 100 ML IVPB SCH (00:25)
[2023-11-02] MEDS: methylPREDNISolone NA SUCC 40 MG/1 ML VIAL IVPUSH SCH (01:47)
[2023-11-02] MEDS ORDERED: AMIODARONE IN DEXTROSE,ISO-OSM 360 MG/200 ML BAG ONE (03:26)
[2023-11-02] MEDS ORDERED: CALCIUM GLUCONATE 10% - 1,000 MG/10 ML VIAL ONE (03:37)
[2023-11-02] MEDS ORDERED: EPINEPHrine 1:10,000 (P-F SYR) 1 MG/10 ML DISP.SYRIN ONE (03:43)
[2023-11-02 04:16] LABS: ARTERIAL BLD GAS O2 SATURATION 98.7 % (95-98); ARTERIAL BLOOD GAS BASE EXCESS -13.4 mmol/L (-2-2); ARTERIAL BLOOD GAS PO2 164.2 mmHg (80-100)
[2023-11-02 04:18] LABS: VENT MODE A/C; VENT RATE 28
[2023-11-02 04:21] LABS: ARTERIAL BLOOD GAS pH 7.172 (7.350-7.450)
[2023-11-02] MEDS: AMIODARONE IN DEXTROSE,ISO-OSM 360 MG/200 ML BAG IV SCH ×2 (04:37→09:36)
[2023-11-02 04:44] LABS: HEMATOCRIT 28.7 % (32.4-45.2); HEMOGLOBIN 8.6 GM/dL (10.7-15.3); MCH 26.1 pg (25.7-33.7); MEAN CELL VOLUME 87.1 fl (80-96); MEAN PLT VOLUME 9.3 fl (7.5-11.1); PLATELET COUNT 173 10^3/uL (134-434); RBC 3.29 M/mm3 (3.60-5.2); RDW 21.9 % (11.6-15.6)
[2023-11-02] MEDS: HYDROCORTISONE SOD SUCCINATE 100 MG/2 ML VIAL IVPUSH SCH (04:45)
[2023-11-02] MEDS: SODIUM BICARBONATE 8.4% 50 MEQ/50 ML DISP.SYRIN IVPUSH ONE ×2 (04:46→11:23)
[2023-11-02 04:54] LABS: INR 1.53 (0.83-1.09); PROTHROMBIN TIME (PATIENT) 17.1 SEC (9.7-13.0)
[2023-11-02 05:03] LABS: POTASSIUM 3.2 mmol/L (3.5-5.1)
[2023-11-02 05:05] LABS: CALCIUM 10.2 mg/dL (8.5-10.1)
[2023-11-02 05:06] LABS: BLOOD UREA NITROGEN 20.1 mg/dL (7-18); MAGNESIUM 3.4 mg/dL (1.8-2.4)
[2023-11-02 05:09] LABS: ALBUMIN 1.4 g/dl (3.4-5.0); CREATININE 1.5 mg/dL (0.55-1.3)
[2023-11-02 05:11] LABS: BILIRUBIN,TOTAL 0.5 mg/dL (0.2-1); TOT PROT 4.8 g/dl (6.4-8.2); WHITE BLOOD COUNT 31.4 K/mm3 (4.0-10.0)
[2023-11-02 05:19] LABS: LACTIC ACID 11.9 mmol/L (0.4-2.0)
[2023-11-02] MEDS: FENTANYL NS IVPB 500 MCG/100 ML BAG IVPB SCH (05:33)
[2023-11-02] MEDS: VASopressin 40 UNITS/100 ML BAG IV SCH (05:34)
[2023-11-02] MEDS: SUCRALFATE 1 GM/10 ML UNIT DOSE CUPS PO SCH (06:08)
[2023-11-02 07:11] LABS: ANISOCYTOSIS 2+; CORRECTED WBC 25.32 K/mm3; MACROCYTOSIS 2+; TARGET CELLS 1+
[2023-11-02] MEDS: KCL 10 MEQ IVPB 10 MEQ/100 ML INFUS.BAG IVPB SCH (07:46)
[2023-11-02 08:16] LABS: EPI CELLS >36 /uL (0-25.1); HYALINE CASTS 12 /uL (0-3.1); URINE APPEARANCE CLOUDY; URINE BACTERIA 30 /uL (0-1359); URINE BILIRUBIN 1+ (NEGATIVE); URINE COLOR DK YELLOW; URINE GLUCOSE (UA) NEGATIVE (NEGATIVE); URINE KETONE TRACE (NEGATIVE); URINE LEUK ESTERASE NEGATIVE (NEGATIVE); URINE NITRITE NEGATIVE (NEGATIVE); URINE PROTEIN 2+ (NEGATIVE); URINE RBC 48 /uL (0-23.9)
[2023-11-02 09:39] LABS: URINE WBC 199 /uL (0-25.8); YEAST FEW (NEGATIVE)
[2023-11-02] MEDS ORDERED: SODIUM BICARBONATE 8.4% - 75 MEQ in SODIUM CHLORIDE 0.45% 950 ML IV SCH (10:30)
[2023-11-02] MEDS: PANTOPRAZOLE SODIUM 40 MG VIAL IVPUSH SCH (10:56)
[2023-11-02] MEDS: BACITRACIN ZINC 15 GM TUBE TOPICAL OINTMENT TP SCH (10:59)
[2023-11-02 11:09] LABS: LACTIC ACID 10.5 mmol/L (0.4-2.0)
[2023-11-02] MEDS ORDERED: SODIUM BICARBONATE 8.4% 50 MEQ/50 ML DISP.SYRIN ONE (11:12)
[2023-11-02] MEDS: ASPIRIN 81 MG CHEWABLE TABLETS PO SCH (11:21)
[2023-11-02] MEDS: metoPROLOL SUCCINATE 25 MG TAB.SR.24H (FP) PO SCH (11:33)
[2023-11-02] MEDS: PIPERACILLIN/TAZOB 4.5 GM 4.5 GM in DEXTROSE 5%-WATER 100 ML IVPB SCH (11:37)
[2023-11-02] MEDS: D5-1/2NS+20 MEQ KCL - 20 MEQ/1,000 ML INFUS.BAG IV SCH (11:39)
[2023-11-02] MEDS: PIPERACILLIN/TAZOB 3.375 GM 3.375 GM in DEXTROSE 5%-WATER 100 ML IVPB SCH (11:41)
[2023-11-02] MEDS: VANCOMYCIN PREMIX 1.5 GM 1,500 MG/300 ML BAG IVPB ONE (11:44)
[2023-11-02] MEDS: AMANTADINE HCL 100MG/10 ML UNIT DOSE CUPS PO SCH (11:45)
[2023-11-02] MEDS: SODIUM BICARBONATE 8.4% - 150 MEQ in DEXTROSE 5%-WATER - 1,000 ML IV SCH (11:46)
[2023-11-02 13:58] LABS: LACTIC ACID 12.1 mmol/L (0.4-2.0)
[2023-11-02] MEDS: HEPARIN NA (PORCINE) 5,000 UNITS/ML 1ML VIAL SQ SCH (14:42)
[2023-11-02 15:56] VITALS: RESP 28
[2023-11-02 16:19] LABS: LACTIC ACID 11.9 mmol/L (0.4-2.0)
[2023-11-02 17:01] LABS: ARTERIAL BLD GAS O2 SATURATION 90.8 % (95-98); ARTERIAL BLOOD GAS PO2 70.3 mmHg (80-100); ARTERIAL BLOOD GAS pH 7.218 (7.350-7.450)
[2023-11-02 17:09] LABS: ALLENS TEST POSITIVE
[2023-11-02 17:10] LABS: VENT MODE AC; VENT RATE 28
[2023-11-02] MEDS: POTASSIUM CHLORIDE ORAL LIQUID 20 MEQ/15 ML GT ONE (17:11)
[2023-11-02] MEDS: VANCOMYCIN PREMIX 1.5 GM 1,500 MG/300 ML BAG IVPB SCH (18:52)
[2023-11-02] MEDS ORDERED: PROPOFOL 1,000,000 MCG/100 ML VIAL ONE (19:08)
[2023-11-02] MEDS ORDERED: VASopressin 20 UNITS/ML VIAL IV ONE (20:03)
[2023-11-02] MEDS: PROPOFOL 1,000,000 MCG/100 ML VIAL IVPB SCH (20:10)
[2023-11-02 22:29] VITALS: BP 162/60; PULSE 43; TEMP 95
[2023-11-02 23:34] LABS: HEMATOCRIT 28.5 % (32.4-45.2); HEMOGLOBIN 8.4 GM/dL (10.7-15.3); MCH 25.8 pg (25.7-33.7); MCHC 29.4 g/dl (32.0-36.0); MEAN CELL VOLUME 87.6 fl (80-96); MEAN PLT VOLUME 9.5 fl (7.5-11.1); PLATELET COUNT 141 10^3/uL (134-434); RBC 3.26 M/mm3 (3.60-5.2); RDW 22.6 % (11.6-15.6)
[2023-11-02 23:36] LABS: ARTERIAL BLD GAS O2 SATURATION 90.3 % (95-98); ARTERIAL BLOOD GAS BASE EXCESS -13.9 mmol/L (-2-2); ARTERIAL BLOOD GAS PO2 75.4 mmHg (80-100)
[2023-11-02 23:36] LABS: WHITE BLOOD COUNT 29.2 K/mm3 (4.0-10.0)
[2023-11-02 23:40] LABS: ARTERIAL BLOOD GAS pH 7.129 (7.350-7.450)
[2023-11-03] LABS: MAGNESIUM 6.9 mg/dL (1.8-2.4); PHOSPHOROUS 2.4 mg/dL (2.5-4.9)
[2023-11-03 00:02] LABS: LACTIC ACID 14.6 mmol/L (0.4-2.0)
== END 2023-11-03 01:03 | disposition expired | DRG 208 ==
LOC: JER 09:56 → JERBED 18:23 → J6S 10-25 01:53 → J4W 10-28 01:48 → JICU 11-01 12:51
PROVIDERS: ADMIT Internal Medicine; ATTEND Internal Medicine
PROC: 5A1945Z Respiratory Ventilation, 24-96 Consecutive Hours (ICD-10-PCS; principal; 2023-11-01)
PROC: 0BH17EZ Insertion of Endotracheal Airway into Trachea, Via Natural or Artificial Opening (ICD-10-PCS; 2023-11-01)
PROC: 5A12012 Performance of Cardiac Output, Single, Manual (ICD-10-PCS; 2023-11-01)
PROC: 05HN33Z Insertion of Infusion Device into Left Internal Jugular Vein, Percutaneous Approach (ICD-10-PCS; 2023-11-01)
PROC: B544ZZA Ultrasonography of Left Jugular Veins, Guidance (ICD-10-PCS; 2023-11-01)
DX: J44.0 Chronic obstructive pulmonary disease with (acute) lower respiratory infection (principal); A41.9 Sepsis, unspecified organism; J69.0 Pneumonitis due to inhalation of food and vomit; G92.8 Other toxic encephalopathy; R65.21 Severe sepsis with septic shock; J80 Acute respiratory distress syndrome; E87.1 Hypo-osmolality and hyponatremia; E87.0 Hyperosmolality and hypernatremia; I47.20 Ventricular tachycardia, unspecified; N17.9 Acute kidney failure, unspecified; E87.20 Acidosis, unspecified; D68.9 Coagulation defect, unspecified; I10 Essential (primary) hypertension; F20.9 Schizophrenia, unspecified; E11.9 Type 2 diabetes mellitus without complications; G40.909 Epilepsy, unspecified, not intractable, without status epilepticus; F31.9 Bipolar disorder, unspecified; E78.5 Hyperlipidemia, unspecified; D47.3 Essential (hemorrhagic) thrombocythemia; K21.9 Gastro-esophageal reflux disease without esophagitis; E88.09 Other disorders of plasma-protein metabolism, not elsewhere classified; I46.2 Cardiac arrest due to underlying cardiac condition; G20.C Parkinsonism, unspecified; E11.40 Type 2 diabetes mellitus with diabetic neuropathy, unspecified; D64.9 Anemia, unspecified; I48.0 Paroxysmal atrial fibrillation; E66.9 Obesity, unspecified; Z68.34 Body mass index [BMI] 34.0-34.9, adult
CPT/HCPCS: 0241U-QW; 31500; 36415; 36600; 70450-TC; 71045-TC-FY; 74018-TC-FY; 80048; 80053; 81003; 82607; 82803; 82962; 83605; 83735; 83880; 84100; 84443; 84484; 85025; 85027; 85610; 85730; 86780; 87040; 87070; 87077; 87086; 87205; 93005; 93010; 94002; 99285-25; G0480; J0131; J1644; J3490